=== PATIENT | female | born 1970 | race Caucasian/White ===

== ENCOUNTER 2017-09-20 17:22 | Emergency (ER) | payer SELFPAY ==
[2017-09-20 17:24] VITALS: BP 154/84; PULSE 99; RESP 14; TEMP 98.4; O2SAT 99
[2017-09-20 18:48] LABS: BASOPHIL # 0.1 TH/MM3 (0-0.2); BASOPHIL % 1.1 % (0.0-2.0); EOSINOPHIL # 0.2 TH/MM3 (0-0.4); EOSINOPHIL % 3.9 % (0.0-4.0); HEMATOCRIT 40.4 % (35.0-46.0); HEMO FLAGS DIFF FINAL; LYMPH % 32.3 % (9.0-44.0); LYMPHOCYTE # 1.8 TH/MM3 (1.0-4.8); MEAN CELL VOLUME 96.7 FL (80.0-100.0); MEAN CORPUSCULAR HEMOGLOBIN 32.5 PG (27.0-34.0); MEAN CORPUSCULAR HGB CONC 33.6 % (32.0-36.0); MONO % 8.8 % (0.0-8.0); NEUT % 53.9 % (16.0-70.0); PLATELET COUNT 259 TH/MM3 (150-450); RED BLOOD COUNT 4.18 MIL/MM3 (4.00-5.30); RED CELL DISTRIBUTION WIDTH 14.1 % (11.6-17.2); WHITE BLOOD COUNT 5.6 TH/MM3 (4.0-11.0)
[2017-09-20 19:07] LABS: BICARBONATE 26.2 MEQ/L (21.0-32.0); POTASSIUM 3.7 MEQ/L (3.5-5.1)
--- NOTE | 2017-09-20 19:16 | RADRPT ---
EXAM DATE/TIME: 09/20/2017 18:03 [facility] COMPARISON: No previous studies available for comparison. INDICATIONS : Shortness of breath. MEDICAL HISTORY : None. SURGICAL HISTORY : None. ENCOUNTER: Initial ACUITY: 1 day PAIN SCORE: 0/10 LOCATION: Bilateral chest FINDINGS: PA and lateral views of the chest demonstrate the lungs to be symmetrically aerated without evidence of mass, infiltrate or effusion. The cardiomediastinal contours are unremarkable. Osseous structure s are intact. Surgical clips in the right upper abdominal quadrant are characteristic of prior cholec ystectomy. CONCLUSION: No acute cardiopulmonary process. Sergio Gallegos MD on September 20, 2017 at 19:13 Board Certified Radiologist. This report was verified electronically.
[2017-09-20] MEDS ORDERED: RESP: ALBUTEROL 2.5 MG/IPRATROPIUM 0.5 MG NEB (SCH) INH ONE (20:45)
--- NOTE | 2017-09-20 20:46 | PD ---
HPI Chief Complaint: Respiratory Symptoms Time Seen by Provider: 20:38 Travel History International Travel<30 days: No Contact w/Intl Traveler<30days: No Traveled to known affect area: No History of Present Illness HPI 46-year-old female here for evaluation of shortness of breath and dental pain. She reports that the shortness of breath started today. Shortness of breath is at rest. She is also complaining of left lower dental pain which also started today. No fevers or chills. No history of DVT or PE. No chest pain. No cough. No illicit drug use or IVDU. She moved from [place] to here in December of this year and has no local primary care physician. [facility] Social History Tobacco Use: Yes Allergies-Medications (Allergen,Severity, Reaction): Coded Allergies: Sulfa (Sulfonamide Antibiotics) (Verified Allergy, Unknown, 09/20/17) azithromycin (Verified Allergy, Unknown, 09/20/17) Reported Meds & Prescriptions Reported Meds & Active Scripts Active Penicillin V Potassium 500 Mg Tab 500 Mg PO Q6H 10 Days Tramadol (Tramadol HCl) 50 Mg Tab 50 Mg PO Q6H PRN Review of Systems Except as stated in HPI: all other systems reviewed are Neg Physical Exam Narrative GENERAL: Well-developed, well-nourished, comfortable, no apparent distress. SKIN: Focused skin assessment warm/dry. HEAD: Atraumatic. Normocephalic. EYES: Pupils equal and round. No scleral icterus. No injection or drainage. ENT: No nasal bleeding or discharge. Very poor dentition with caries. No fluctuance or induration. No trismus. Mucous membranes pink and moist. No drooling or stridor. Normal pharynx. NECK: Trachea midline. No JVD. CARDIOVASCULAR: Regular rate and rhythm. RESPIRATORY: No accessory muscle use. Clear to auscultation. Breath sounds equal bilaterally. GASTROINTESTINAL: Abdomen soft, non-tender, nondistended. MUSCULOSKELETAL: No obvious deformities. No clubbing. No cyanosis. No edema. NEUROLOGICAL: Awake and alert. No obvious cranial nerve deficits. Motor grossly within normal limits. Normal speech. PSYCHIATRIC: Appropriate mood and affect; insight and judgment normal. Data Data Last Documented VS Vital Signs Date Time Temp Pulse Resp B/P (MAP) Pulse Ox O2 Delivery O2 Flow Rate FiO2 09/20/17 22:46 18 09/20/17 21:28 98 21 09/20/17 20:52 Room Air 09/20/17 20:49 87 09/20/17 17:24 98.4 Orders Orders Complete Blood Count With Diff (09/20/17 17:46) Basic Metabolic Panel (Bmp) (09/20/17 17:46) Chest, Pa & Lat (09/20/17 ) D-Dimer (09/20/17 20:42) Ckmb (Isoenzyme) Profile (09/20/17 20:42) Troponin I (09/20/17 20:42) Albuterol-Ipratropium Neb (Duoneb Neb) (09/20/17 20:45) Electrocardiogram (09/20/17 20:45) Ketorolac Inj (Toradol Inj) (09/20/17 21:30) Tramadol (Ultram) (09/20/17 22:30) Penicillin V Potassium (Veetids) (09/20/17 22:30) Ed Discharge Order (09/20/17 22:27) Labs Laboratory Tests Test 09/20/17 18:00 09/20/17 21:20 White Blood Count 5.6 TH/MM3 Red Blood Count 4.18 MIL/MM3 Hemoglobin 13.6 GM/DL Hematocrit 40.4 % Mean Corpuscular Volume 96.7 FL Mean Corpuscular Hemoglobin 32.5 PG Mean Corpuscular Hemoglobin Concent 33.6 % Red Cell Distribution Width 14.1 % Platelet Count 259 TH/MM3 Mean Platelet Volume 8.9 FL Neutrophils (%) (Auto) 53.9 % Lymphocytes (%) (Auto) 32.3 % Monocytes (%) (Auto) 8.8 % Eosinophils (%) (Auto) 3.9 % Basophils (%) (Auto) 1.1 % Neutrophils # (Auto) 3.0 TH/MM3 Lymphocytes # (Auto) 1.8 TH/MM3 Monocytes # (Auto) 0.5 TH/MM3 Eosinophils # (Auto) 0.2 TH/MM3 Basophils # (Auto) 0.1 TH/MM3 CBC Comment DIFF FINAL Differential Comment Blood Urea Nitrogen 15 MG/DL Creatinine 0.66 MG/DL Random Glucose 58 MG/DL Calcium Level 8.0 MG/DL Sodium Level 140 MEQ/L Potassium Level 3.7 MEQ/L Chloride Level 109 MEQ/L Carbon Dioxide Level 26.2 MEQ/L Anion Gap 5 MEQ/L Estimat Glomerular Filtration Rate 96 ML/MIN Total Creatine Kinase 34 U/L Troponin I LESS THAN 0.02 NG/ML D-Dimer Quantitative (PE/DVT) 0.39 MG/L FEU [facility] Medical Decision Making Medical Screen Exam Complete: Yes Emergency Medical Condition: Yes Interpretation(s) EKG: Sinus, rate 88, normal axis, normal intervals, no acute ischemic abnormality. Differential Diagnosis Reactive airway disease, COPD, pneumonia, PE, ACS, pneumothorax Narrative Course Vital signs show heart rate 87, blood pressure 147/81, pulse ox 100% on room air , oral temp of 98.4F. CBC is unremarkable. BMP is essentially unremarkable. Cardiac enzymes are negative. D-dimer is negative at 0.39. Chest x-ray: No acute cardiopulmonary process. The patient was made aware of all findings. She is resting comfortably. Her O2 saturation is 99% on room air and she is not in any respiratory distress. I do not have a specific etiology for her dyspnea, however I do not believe she has a PE. She has no chest pain. I do not believe this is ACS. Chest x-ray shows no acute cardiopulmonary process. There is no pneumothorax or pulmonary edema. She is requesting something for her dental pain. She has obvious dental decay with tenderness to the left lower molars with several missing teeth. There are no obvious signs of infection. Plan is to discharge her home with a prescription for Pen-Vee K and pain medication. She is advised follow- up with a primary care physician as well as a dentist this week. She was informed on when to return to the emergency department. She verbalizes understanding and agreement with plan. Diagnosis Primary Impression: Pain, dental Additional Impression: Dyspnea Qualified Codes: R06.00 - Dyspnea, unspecified Referrals: [facility] 3 days Dentist 3 days Primary Care Physician 3 days Additional Instructions: Follow-up with a primary care physician this week. Follow-up with a dentist this week. Return to the emergency department for worsening symptoms or any other concerns. Scripts Penicillin V Potassium (Penicillin V Potassium) 500 Mg Tab 500 MG PO Q6H for Infection for 10 Days, #40 TAB 0 Refills Prov: Roly Branch MD 09/20/17 Tramadol (Tramadol) 50 Mg Tab 50 MG PO Q6H Y for PAIN, #12 TAB 0 Refills Prov: Roly Branch MD 09/20/17 Disposition: 01 DISCHARGE HOME Condition: Stable Roly Branch MD Sep 20, 2017 20:46
[2017-09-20 20:49] VITALS: BP 147/81; PULSE 87; RESP 20; O2SAT 100
[2017-09-20 21:26] LABS: CREATINE KINASE 34 U/L (26-192)
[2017-09-20 21:28] VITALS: O2SAT 98
[2017-09-20] MEDS ORDERED: KETOROLAC TROMETHAMINE 30 MG/ML (IVP) VIAL IV PUSH ONE (21:30)
[2017-09-20] MEDS ORDERED: TRAM50TA PO (22:26)
[2017-09-20] MEDS ORDERED: PENI500T PO (22:26)
[2017-09-20] MEDS ORDERED: traMADol HCL 50 MG TAB PO ONE (22:30)
[2017-09-20] MEDS ORDERED: PENICILLIN V POTASSIUM 500 MG TAB PO ONE (22:30)
--- NOTE | 2017-09-21 15:19 | EKG ---
Date Performed: 09/20/2017 Time Performed: 20:45:33 PTAGE: 46 years EKG: Sinus rhythm NORMAL ECG NO PREVIOUS TRACING DOCTOR: Saige Johansen Interpretating Date/Time 09/21/2017 15:18:21
== END 2017-09-20 22:48 | disposition home or self-care (01) ==
LOC: NEPD 17:22
DX: K08.89 Other specified disorders of teeth and supporting structures (principal); R06.00 Dyspnea, unspecified; R06.02 Shortness of breath; Z72.0 Tobacco use
CPT/HCPCS: 71020; 80048; 82550; 84484; 85025; 85379; 93005; 94664; 96374; 99284; J1885

== ENCOUNTER 2018-01-16 21:54 | Observation (INO) | payer SELFPAY ==
[~2018-01-16 21:54] MED LIST: PENI500T PO; TRAM50TA PO
[2018-01-16 21:58] VITALS: BP 155/88; PULSE 116; RESP 16; TEMP 97.8; O2SAT 100
--- NOTE | 2018-01-16 22:21 | PD ---
HPI Chief Complaint: Chest Pain Time Seen by Provider: 22:20 Travel History International Travel<30 days: No Contact w/Intl Traveler<30days: No Traveled to known affect area: No History of Present Illness HPI The patient is a 47 year old female who presents to the [facility] emergency department with a history of chest pain that began at approximately 3 PM. She reports that she had more fatigue than usual today and took a nap. When she woke up from the nap she noticed the chest pain. She reports that the pain is in the left side of her chest. She reports that it radiates straight through to her back and her left shoulder. She denies ever having a pain like this previously. She reports that it is sharp in character. She reports that it is been constant since the onset. She did take one low-dose aspirin prior to arrival. She denies having any prior history of cardiac disease. She reports having associated shortness of breath. She denies having any nausea or vomiting. She denies having any diaphoresis. She denies having any lower extremity edema, calf pain, or erythema. She denies any prior history of DVT or PE. On review of systems otherwise, she denies having any recent fevers, cough or congestion, neck pain, abdominal pain, diarrhea, urinary symptoms, or neurologic symptoms. The patient reports that her primary care physician is Dr. Ulloa. She reports that she does have a history of hyperlipidemia, however this resolved after a gastric bypass 12 years ago. [facility] Past Medical History Narrative Medical The patient's past medical history is significant for low iron, low potassium as complications from her gastric bypass. The patient has a history of bowel obstruction related to adhesions. Depression: Yes Diminished Hearing: No Immunizations Current: Yes ?: Not LMP: 01/11/18 Past Surgical History Narrative Surgical The patient's past surgical history is significant for gastric bypass, cholecystectomy, abdominal surgery related to bowel obstruction and lysis of adhesions. Abdominal Surgery: Yes ("BOWEL OBSTRUCTIONS", GASTRIC BYPASS) Cholecystectomy: Yes Social History Alcohol Use: No (DENIES) Tobacco Use: Yes (10/26 PPD) Substance Use: No Allergies-Medications (Allergen,Severity, Reaction): Coded Allergies: Sulfa (Sulfonamide Antibiotics) (Verified Allergy, Unknown, 01/16/18) azithromycin (Verified Allergy, Unknown, 01/16/18) Reported Meds & Prescriptions Reported Meds & Active Scripts Active No Active Prescriptions or Reported Medications Review of Systems Except as stated in HPI: all other systems reviewed are Neg General / Constitutional: No: Fever Eyes: No: Visual changes HENT: No: Headaches Cardiovascular: Positive: Chest Pain or Discomfort, Dyspnea on exertion, No: Diaphoresis Respiratory: No: Cough, Shortness of Breath Gastrointestinal: No: Nausea, Vomiting, Diarrhea, Abdominal Pain Genitourinary: No: Dysuria Musculoskeletal: No: Pain Skin: No Rash Neurologic: No: Weakness Psychiatric: No: Depression Endocrine: No: Polydipsia Hematologic/Lymphatic: No: Easy Bruising Physical Exam Narrative General: The patient is a well-developed well-nourished female, uncomfortable appearing on my arrival to the room, however in no other acute distress. Head and Neck exam: Head is normocephalic atraumatic. Eyes: EOMI, pupils are equal round and reactive to light. Nose: Midline septum with pink mucous membranes Mouth: Dentition unremarkable. Moist mucus membranes. Posterior oropharynx is not erythematous. No tonsillar hypertrophy. Uvula midline. Airway patent. Neck: No palpable lymphadenopathy. No nuchal rigidity. No thyromegaly. Cardiovascular: Sinus tachycardia in the low 100 without murmurs, gallops, or rubs. No pulse deficit to the extremities on simultaneous auscultation and palpation of her radial artery. Lungs: Clear to auscultation bilaterally. No wheezes, rhonchi, or rales. Abdomen: Soft, without tenderness to palpation in all 4 quadrants of the abdomen. No guarding, rebound, or rigidity. Normal bowel sounds are audible. No tenderness on palpation of McBurney's point. Extremities: No clubbing, cyanosis, or edema. 2+ pulses in all 4 extremities. No calf tenderness on palpation. Back: No spinous process tenderness to palpation. No costovertebral angle tenderness to palpation. Neurologic Exam: Grossly nonfocal. Skin Exam: No rash noted. Intact skin that is warm and dry. Data Data Last Documented VS Vital Signs Date Time Temp Pulse Resp B/P (MAP) Pulse Ox O2 Delivery O2 Flow Rate FiO2 01/16/18 21:58 97.8 116 16 155/88 (110) 100 Room Air Orders Orders B-Type Natriuretic Peptide (01/16/18 22:20) Ckmb (Isoenzyme) Profile (01/16/18 22:20) Complete Blood Count With Diff (01/16/18 22:20) Comprehensive Metabolic Panel (01/16/18 22:20) D-Dimer (01/16/18 22:20) Magnesium (Mg) (01/16/18 22:20) Prothrombin Time / Inr (Pt) (01/16/18 22:20) Act Partial Throm Time (Ptt) (01/16/18 22:20) Troponin I (01/16/18 22:20) Lipase (01/16/18 22:20) Ecg Monitoring (01/16/18 22:20) Bilateral Bp Monitoring (01/16/18 22:20) Iv Access Insert/Monitor (01/16/18 22:20) Oximetry (01/16/18 22:20) Oxygen Administration (01/16/18 22:20) Aspirin Chew (Aspirin Chew) (01/16/18 22:30) Sodium Chloride 0.9% Flush (Ns Flush) (01/16/18 22:30) Nitroglycerin Sl (Nitrostat Sl) (01/16/18 22:30) Chest, Pa & Lat (01/16/18 22:20) Ed Urine Pregnancytest Poc (01/16/18 22:20) Aspirin Chew (Aspirin Chew) (01/16/18 23:15) Nitroglycerin 2% Oint (Nitroglycerin 2% (01/16/18 23:15) Blood Glucose (01/17/18 00:29) Morphine Inj (Morphine Inj) (01/17/18 00:30) Ondansetron Inj (Zofran Inj) (01/17/18 00:30) Admit Order (Ed Use Only) (01/17/18 01:00) Labs Laboratory Tests Test 01/16/18 22:50 White Blood Count 8.1 TH/MM3 Red Blood Count 4.49 MIL/MM3 Hemoglobin 14.0 GM/DL Hematocrit 42.1 % Mean Corpuscular Volume 93.7 FL Mean Corpuscular Hemoglobin 31.3 PG Mean Corpuscular Hemoglobin Concent 33.4 % Red Cell Distribution Width 13.2 % Platelet Count 249 TH/MM3 Mean Platelet Volume 9.0 FL Neutrophils (%) (Auto) 57.5 % Lymphocytes (%) (Auto) 25.8 % Monocytes (%) (Auto) 11.5 % Eosinophils (%) (Auto) 4.3 % Basophils (%) (Auto) 0.9 % Neutrophils # (Auto) 4.7 TH/MM3 Lymphocytes # (Auto) 2.1 TH/MM3 Monocytes # (Auto) 0.9 TH/MM3 Eosinophils # (Auto) 0.3 TH/MM3 Basophils # (Auto) 0.1 TH/MM3 CBC Comment DIFF FINAL Differential Comment Prothrombin Time 9.5 SEC Prothromb Time International Ratio 0.9 RATIO Activated Partial Thromboplast Time 24.1 SEC D-Dimer Quantitative (PE/DVT) 0.45 MG/L FEU Blood Urea Nitrogen 17 MG/DL Creatinine 0.74 MG/DL Random Glucose 65 MG/DL Total Protein 6.9 GM/DL Albumin 3.1 GM/DL Calcium Level 7.8 MG/DL Magnesium Level 2.0 MG/DL Alkaline Phosphatase 140 U/L Aspartate Amino Transf (AST/SGOT) 20 U/L Alanine Aminotransferase (ALT/SGPT) 34 U/L Total Bilirubin 0.3 MG/DL Sodium Level 140 MEQ/L Potassium Level 3.6 MEQ/L Chloride Level 105 MEQ/L Carbon Dioxide Level 28.0 MEQ/L Anion Gap 7 MEQ/L Estimat Glomerular Filtration Rate 84 ML/MIN Total Creatine Kinase 55 U/L Troponin I LESS THAN 0.02 NG/ML B-Type Natriuretic Peptide 52 PG/ML Lipase 171 U/L MDM Medical Decision Making Medical Screen Exam Complete: Yes Emergency Medical Condition: Yes Medical Record Reviewed: Yes Interpretation(s) Last Impressions CT Angiography 01/17/18 0000 Signed Impressions: Service Date/Time: Wednesday, January 17, 2018 09:39 - CONCLUSION: Unremarkable exam with no evidence of pulmonary emboli. Geovanny Gonzalez MD Chest X-Ray 01/16/18 2220 Signed Impressions: Service Date/Time: Tuesday, January 16, 2018 22:30 - CONCLUSION: No acute disease. Raphael Betancourt MD FACR Differential Diagnosis Acute coronary syndrome, versus pulmonary embolism, versus congestive heart failure, versus C, versus costochondritis, versus pneumothorax Narrative Course During the course of the patient's emergency department visit, the patient's history, examination, and differential diagnosis were reviewed with the patient. The patient was placed on a gate clerk with oximetry and frequent blood pressure monitoring. The patient had IV access obtained and blood work sent for analysis. The patient had an EKG done on arrival that shows a sinus tachycardia with a short NM interval, QRS duration is 89 ms, QTC is [address] segment elevation. T waves are inverted in V1. The patient was initially provided aspirin 243 mg p.o. 1 as she reports taking one low-dose aspirin prior to arrival. Sublingual nitroglycerin 3 as needed chest pain every 5 minutes, nitroglycerin 1 inch the chest wall. The patient's laboratory studies were reviewed and remarkable for a CBC that is unremarkable, CMP is remarkable for a glucose of 65 on chemistry, however on repeat examination of the bedside it was found to be normal. Alk phos 140, CPK 55, troponin I less than 0.02, BNP is 52, albumin 3.1, lipase 171. PT 9.5, PTT 24.1, d-dimer 0.45 decreasing the likelihood of pulmonary embolism in this patient with no other significant risk factors. Radiology studies were reviewed and remarkable for a chest x-ray that showed no acute cardiopulmonary disease The patient's results were discussed with the patient, including the plan of care. I explained that further testing and/ or monitoring is indicated based on the patient's history, examination, and/ or laboratory findings. Therefore, I recommended admission for additional evaluation. The patient expressed understanding and was agreeable with this plan. The patient was admitted to the hospital in stable condition and sent to a bed under the care of the chest pain center Diagnosis Primary Impression: Chest pain, rule out acute myocardial infarction Admitting Information Admitting Physician Requests: Observation Scripts No Active Prescriptions or Reported Meds Sunni Hernandez MD Jan 16, 2018 22:21
[2018-01-16] MEDS ORDERED: SODIUM CHLORIDE 0.9% FLUSH 10 ML FLUSH IVF PRN (22:30)
[2018-01-16] MEDS ORDERED: ASPIRIN 81 MG CHEW TAB PO ONE (22:30)
[2018-01-16] MEDS ORDERED: NITROGLYCERIN 0.4 MG SL 25 TABS/BTL SL ONE (22:30)
--- NOTE | 2018-01-16 22:37 | RADRPT ---
EXAM DATE/TIME: 01/16/2018 22:30 [facility] COMPARISON: CHEST PA & LAT, September 20, 2017, 18:03. INDICATIONS : Chest pain MEDICAL HISTORY : None. SURGICAL HISTORY : None. ENCOUNTER: Initial ACUITY: 1 day PAIN SCORE: 8/10 LOCATION: chest FINDINGS: PA and lateral views of the chest demonstrate the lungs to be symmetrically aerated without evidence of mass, infiltrate or effusion. The cardiomediastinal contours are unremarkable. Osseous structure s are intact. CONCLUSION: No acute disease. Raphael Betancourt MD FACR on January 16, 2018 at 22:34 Board Certified Radiologist. This report was verified electronically.
[2018-01-16] MEDS ORDERED: ASPIRIN 81 MG CHEW TAB CHEW ONE (23:15)
[2018-01-16] MEDS ORDERED: NITROGLYCERIN 2% OINT 1 GM PACKET TOPICAL ONE (23:15)
[2018-01-16 23:19] LABS: ALBUMIN 3.1 GM/DL (3.4-5.0); AST (GOT) 20 U/L (15-37); BLOOD UREA NITROGEN 17 MG/DL (7-18); CALCIUM 7.8 MG/DL (8.5-10.1); CHLORIDE 105 MEQ/L (98-107); CREATININE 0.74 MG/DL (0.50-1.00); GLOMERULAR FILTRATION RATE 84 ML/MIN (>89); GLUCOSE,RANDOM 65 MG/DL (74-106); SODIUM (NA) 140 MEQ/L (136-145)
[2018-01-16 23:23] LABS: ALKALINE PHOSPHATASE 140 U/L (45-117); ALT (GPT) 34 U/L (10-53); TOTAL BILIRUBIN ADULT 0.3 MG/DL (0.2-1.0); TOTAL PROTEIN 6.9 GM/DL (6.4-8.2); TROPONIN I LESS THAN 0.02 NG/ML (0.02-0.05)
[2018-01-16 23:29] LABS: INTERNATIONAL NORMALIZED RATIO 0.9 RATIO; PROTHROMBIN TIME - PATIENT 9.5 SEC (9.8-11.6)
[2018-01-16 23:42] LABS: D-DIMER 0.45 MG/L FEU (0.00-0.50)
[2018-01-17] LABS: AUTOMATED NEUTROPHIL # 4.7 TH/MM3 (1.8-7.7); BASOPHIL # 0.1 TH/MM3 (0-0.2); BASOPHIL % 0.9 % (0.0-2.0); EOSINOPHIL # 0.3 TH/MM3 (0-0.4); EOSINOPHIL % 4.3 % (0.0-4.0); HEMATOCRIT 42.1 % (35.0-46.0); LYMPH % 25.8 % (9.0-44.0); LYMPHOCYTE # 2.1 TH/MM3 (1.0-4.8); MEAN CELL VOLUME 93.7 FL (80.0-100.0); MEAN CORPUSCULAR HEMOGLOBIN 31.3 PG (27.0-34.0); MEAN CORPUSCULAR HGB CONC 33.4 % (32.0-36.0); MONO % 11.5 % (0.0-8.0); MONOCYTE # 0.9 TH/MM3 (0-0.9); NEUT % 57.5 % (16.0-70.0); PLATELET COUNT 249 TH/MM3 (150-450); RED BLOOD COUNT 4.49 MIL/MM3 (4.00-5.30); RED CELL DISTRIBUTION WIDTH 13.2 % (11.6-17.2); WHITE BLOOD COUNT 8.1 TH/MM3 (4.0-11.0)
[2018-01-17] MEDS ORDERED: ONDANSETRON HCL 4 MG/2 ML VIAL IV PUSH ONE (00:30)
[2018-01-17] MEDS ORDERED: MORPHINE SULFATE 4 MG/ML INJ IV PUSH ONE (00:30)
[2018-01-17] MEDS ORDERED: REGADENOSON INJ 0.4 MG/5 ML SYR IV ONE (01:03)
[2018-01-17] MEDS ORDERED: IOHEXOL 350 MG/ML 10 ML VIAL (for RAD DIAG) IVCONTRAST ONE (01:03)
[2018-01-17] MEDS ORDERED: SODIUM CHLORIDE 0.9% FLUSH 10 ML FLUSH IV FLUSH PRN (02:15)
[2018-01-17] MEDS: ACETAMINOPHEN/HYDROcodone 325 MG/7.5 MG TAB PO PRN ×2 (02:33→07:57)
[2018-01-17 02:36] VITALS: BP 126/73; PULSE 93; RESP 16; O2SAT 99
[2018-01-17 02:50] LABS: TROPONIN I LESS THAN 0.02 NG/ML (0.02-0.05)
[2018-01-17 05:39] LABS: TROPONIN I LESS THAN 0.02 NG/ML (0.02-0.05)
[2018-01-17 07:31] VITALS: O2SAT 95
[2018-01-17 08:37] VITALS: BP 139/90; PULSE 110; RESP 18; TEMP 99.2; O2SAT 96
[2018-01-17] MEDS ORDERED: LORazepam 2 MG/ML VIAL IV PUSH ONE (09:00)
[2018-01-17] MEDS ORDERED: SODIUM CHLORIDE 0.9% FLUSH 10 ML FLUSH IV FLUSH SCH (09:00)
[2018-01-17 09:26] VITALS: RESP 18
--- NOTE | 2018-01-17 09:46 | HHI.HP ---
HPI Primary Care Physician Unknown Chief Complaint Chest pain History of Present Illness This is a 47-year-old female history of anxiety, back pain, neuropathy that presents to ED with complaint of a left-sided sharp chest discomfort that has been intermittent for couple days. Worse when she lies flat. Symptoms were worse yesterday afternoon prompting her to come to the ED. She has not had symptoms like this before. She is felt as if her heart rate was elevated. She has been short of breath. No inspirational chest discomfort. Denies diaphoresis or nausea. Denies . Her urine test was negative in the ED. Denies recent illnesses. Denies fevers or chills. Voices compliance with medications. Denies hypertension, hyperlipidemia, diabetes, or known CAD. Review of Systems General: Patient denies fevers, chills recent, and recent travel HEENT: Patient denies headache, sore throat, difficulty swallowing. Cardiovascular: Has the chest discomfort as mentioned above. Denies sensation of heart beating rapidly or irregularly. No syncope. Denies diaphoresis. Respiratory: Had shortness of breath. Discomfort was worsened when taking a deep breath as well as when lying flat. Denies coughing wheezing or hemoptysis. GI: Patient denies nausea, vomiting, diarrhea, abdominal pain, bloody stools. Musculoskeletal: Chronic back pain. Patient denies joint pain or edema. Denies calf pain or edema. Neurovascular: Patient denies numbness, tingling, weakness in extremities. Denies headache. Endocrine: Denies polyuria and polydipsia. Hematologic: Denies easy bruising. Skin: Denies rash or itching. Past Family Social History Allergies: Coded Allergies: Sulfa (Sulfonamide Antibiotics) (Verified Allergy, Unknown, 01/16/18) azithromycin (Verified Allergy, Unknown, 01/16/18) Past Medical History Tobacco abuse, anxiety, chronic back pain. Denies hypertension, hyperlipidemia , diabetes, and known CAD. Past Surgical History Gastric bypass about 12 years ago. Reported Medications Reported Meds & Active Scripts Active Active Ordered Medications Current Medications Medications (Trade) Dose Ordered Sig/Corey Route Start Time Stop Time Status Last Admin (NS Flush) 2 ml UNSCH PRN IVF 01/16/18 22:30 01/16/18 22:55 (NS Flush) 2 ml UNSCH PRN IV FLUSH 01/17/18 02:15 (NS Flush) 2 ml BID IV FLUSH 01/17/18 09:00 01/17/18 07:57 ([place] 7.5-325 Mg) 1 tab Q4H PRN PO 01/17/18 02:15 01/17/18 07:57 Family History Patient states she is adopted and does not know her family medical history. Social History Has been smoking one half pack of cigarettes daily for approximately 30 years. Denies alcohol or illicit drug use. Physical Exam Vital Signs Vital Signs Date Time Temp Pulse Resp B/P (MAP) Pulse Ox O2 Delivery O2 Flow Rate FiO2 01/17/18 09:26 18 01/17/18 08:37 99.2 110 18 139/90 (106) 96 01/17/18 07:31 95 21 01/17/18 02:36 93 16 126/73 (90) 99 Room Air 01/16/18 21:58 97.8 116 16 155/88 (110) 100 Room Air Physical Exam GENERAL: This is a well-nourished, well-developed patient, in no apparent distress. Patient speaks in clear complete sentences. Patient is pleasant. HEENT: Head is atraumatic and normocephalic. Neck is supple without lymphadenopathy and trachea is midline. No JVD or carotid bruits. CARDIOVASCULAR: Regular rate and rhythm without murmurs, gallops, or rubs. RESPIRATORY: Clear to auscultation. Breath sounds equal bilaterally. No wheezes , rales, or rhonchi. Chest wall is nontender. No use of accessory muscles. GASTROINTESTINAL: Abdomen is nontender, nondistended. Abdomen soft. No obvious pulsatile mass or bruit. No CVA tenderness. Strong femoral pulses bilaterally. Normal bowel sounds in all quadrants. MUSCULOSKELETAL: Patient is moving upper and lower extremities freely. No calf tenderness or edema, no Homans sign. Strong pulses in upper and lower extremities. NEUROLOGICAL: Patient is alert and oriented. Cranial nerves 2-12 are grossly intact. No focal deficits and speech is clear. SKIN: No rash and turgor is normal. Laboratory Laboratory Tests Test 01/16/18 22:50 01/17/18 02:15 01/17/18 05:00 01/17/18 08:50 White Blood Count 8.1 Red Blood Count 4.49 Hemoglobin 14.0 Hematocrit 42.1 Mean Corpuscular Volume 93.7 Mean Corpuscular Hemoglobin 31.3 Mean Corpuscular Hemoglobin Concent 33.4 Red Cell Distribution Width 13.2 Platelet Count 249 Mean Platelet Volume 9.0 Neutrophils (%) (Auto) 57.5 Lymphocytes (%) (Auto) 25.8 Monocytes (%) (Auto) 11.5 Eosinophils (%) (Auto) 4.3 Basophils (%) (Auto) 0.9 Neutrophils # (Auto) 4.7 Lymphocytes # (Auto) 2.1 Monocytes # (Auto) 0.9 Eosinophils # (Auto) 0.3 Basophils # (Auto) 0.1 CBC Comment DIFF FINAL Differential Comment Prothrombin Time 9.5 Prothromb Time International Ratio 0.9 Activated Partial Thromboplast Time 24.1 D-Dimer Quantitative (PE/DVT) 0.45 Blood Urea Nitrogen 17 Creatinine 0.74 Random Glucose 65 Total Protein 6.9 Albumin 3.1 Calcium Level 7.8 Magnesium Level 2.0 Alkaline Phosphatase 140 Aspartate Amino Transf (AST/SGOT) 20 Alanine Aminotransferase (ALT/SGPT) 34 Total Bilirubin 0.3 Sodium Level 140 Potassium Level 3.6 Chloride Level 105 Carbon Dioxide Level 28.0 Anion Gap 7 Estimat Glomerular Filtration Rate 84 Total Creatine Kinase 55 55 44 Troponin I LESS THAN 0.02 LESS THAN 0.02 LESS THAN 0.02 B-Type Natriuretic Peptide 52 Lipase 171 Thyroid Stimulating Hormone 3rd Gen 2.600 Result Diagram: 01/16/18224901/16/182249 Imaging Chest x-ray reveals nothing acute. Course EKGs are sinus tachycardia without significant ST segment depressions or elevations. Caprini VTE Risk Assessment Caprini VTE Risk Assessment: No/Low Risk (score <= 1) Caprini Risk Assessment Model Point Value = 1 Point Value = 2 Point Value = 3 Point Value = 5 Age 41-60 Minor surgery BMI > 25 kg/m2 Swollen legs Varicose veins or History of unexplained or recurrent spontaneous Oral contraceptives or hormone replacement Sepsis (< 1 month) Serious lung disease, including pneumonia (< 1 month) Abnormal pulmonary function Acute myocardial infarction Congestive heart failure (< 1 month) History of inflammatory bowel disease Medical patient at bed rest Age 61-74 Arthroscopic surgery Major open surgery (> 45 min) Laparoscopic surgery (> 45 min) Malignancy Confined to bed (> 72 hours) Immobilizing plaster cast Central venous access Age >= 75 History of VTE Family history of VTE Factor V Leiden Prothrombin [id number] Lupus anticoagulant Anticardiolipin antibodies Elevated serum homocysteine Heparin-induced thrombocytopenia Other congenital or acquired thrombophilia Stroke (< 1 month) Elective arthroplasty Hip, pelvis, or leg fracture Acute spinal cord injury (< 1 month) Prophylaxis Regimen Total Risk Factor Score Risk Level Prophylaxis Regimen 0-1 Low Early ambulation 2 Moderate Order ONE of the following: *Sequential Compression Device (SCD) *Heparin 5000 units SQ BID 3-4 Higher Order ONE of the following medications: *Heparin 5000 units SQ TID *Enoxaparin/Lovenox 40 mg SQ daily (WT < 150 kg, CrCl > 30 mL/min) *Enoxaparin/Lovenox 30 mg SQ daily (WT < 150 kg, CrCl > 10-29 mL/min) *Enoxaparin/Lovenox 30 mg SQ BID (WT < 150 kg, CrCl > 30 mL/min) AND/OR *Sequential Compression Device (SCD) 5 or more Highest Order ONE of the following medications: *Heparin 5000 units SQ TID (Preferred with Epidurals) *Enoxaparin/Lovenox 40 mg SQ daily (WT < 150 kg, CrCl > 30 mL/min) *Enoxaparin/Lovenox 30 mg SQ daily (WT < 150 kg, CrCl > 10-29 mL/min) *Enoxaparin/Lovenox 30 mg SQ BID (WT < 150 kg, CrCl > 30 mL/min) AND *Sequential Compression Device (SCD) Assessment and Plan Assessment and Plan * Chest pain: Patient has had serial cardiac enzymes and EKGs for ruling out purposes. She is also complaining of worsening symptoms with deep inspiration lying flat. We will get a CT pulmonary angiogram. Patient was seen by Dr. Brett Lin of cardiology in the [facility] pain center. If her CTA does not reveal PE that she would likely proceed with a Lexiscan. Patient will be then be discharged home if her stress test is nonischemic with instructions to follow -up with PCP. Return to ED for interval issues. * Anxiety: Resume medications. * Tobacco abuse: Patient has been counseled on the importance of smoking cessation. Alejo Vargas Jan 17, 2018 09:46
--- NOTE | 2018-01-17 10:02 | RADRPT ---
EXAM DATE/TIME: 01/17/2018 09:39 [facility] COMPARISON: CHEST PA & LAT, January 16, 2018, 22:30. INDICATIONS : Chest pain IV CONTRAST: 74 cc Omnipaque 350 (iohexol) IV RADIATION DOSE: 5.21 CTDIvol (mGy) MEDICAL HISTORY : None SURGICAL HISTORY : Gastric bypass. Cholecystectomy. ENCOUNTER: Initial ACUITY: 1 day PAIN SCALE: 7/10 LOCATION: chest TECHNIQUE: Volumetric scanning of the chest was performed using a pulmonary embolism protocol MIP images were re constructed. Using automated exposure control and adjustment of the mA and/or kV according to patien t size, radiation dose was kept as low as reasonably achievable to obtain optimal diagnostic quality images. DICOM format image data is available electronically for review and comparison. Follow-up recommendations for detected pulmonary nodules are based at a minimum on nodule size and pa tient risk factors according to Fleischner Society Guidelines. FINDINGS: PULMONARY ARTERIES: No filling defects are seen in the pulmonary arteries through the segmental level. LUNGS: There is no consolidation or pneumothorax . No concerning pulmonary nodule is visualized. PLEURAE: There is no pleural thickening or pleural effusion. MEDIASTINUM: There is good visualization of the great vessels of the middle mediastinum. No evidence of mediastin al or hilar adenopathy/mass. MUSCULOSKELETAL: Within normal limits for patient age. MISCELLANEOUS: The visualized upper abdominal organs demonstrate no acute abnormality. The patient is status post ch olecystectomy. CONCLUSION: Unremarkable exam with no evidence of pulmonary emboli. Geovanny Gonzalez MD on January 17, 2018 at 9:57 Board Certified Radiologist. This report was verified electronically.
--- NOTE | 2018-01-17 14:01 | RADRPT ---
EXAM DATE/TIME: 01/17/2018 12:23 [facility] COMPARISON: CHEST PA & LAT, January 16, 2018, 22:30. INDICATIONS : Chest pain with dyspnea and polysubstance abuse. Angina. DOSE: 27.2 mCi Tc99m Myoview at stress. 8.5 mCi Tc99m Myoview at rest. 0.4 mg Lexiscan STRESS SYMPTOMS: Weird feeling. EJECTION FRACTION: 43% MEDICAL HISTORY : Hypercholesterolemia. Beta - SURGICAL HISTORY : Gastric bypass. Cholecystectomy. ENCOUNTER: Initial ACUITY: 1 day PAIN SCALE: 0/10 LOCATION: Bilateral chest TECHNIQUE: The patient underwent pharmacologic stress with infusion of prescribed dose. Continuous ECG tracing was monitored during stress. Gated SPECT imaging was performed after stress and conventional SPECT i maging was performed at rest. The examination was performed on a SPECT/CT scanner, both attenuation and non-corrected datasets were reviewed. FINDINGS: DISTRIBUTION: The maximum perfused segment at stress is in the anterior lateral wall. PERFUSION STUDY: The pattern of perfusion at stress is within normal limits. There is a some stress score of 4. GATED STUDY: There is fairly symmetric wall motion with questionable mild hypokinesis without a distinct focal hyp okinetic or dyskinetic segments. CONCLUSION: 1. No fixed or reversible wall defects to suggest ischemia or infarction. 2. Mildly decreased activity ejection fraction of 43% with questionable mild global hypokinesis. RISK CATEGORY: Low (<1% Annual Mortality Rate) Geovanny Gonzalez MD on January 17, 2018 at 13:55 Board Certified Radiologist. This report was verified electronically.
--- NOTE | 2018-01-17 14:28 | HHI.DCPOC ---
Discharge Care Plan Diagnosis: (1) Chest pain (2) Tobacco abuse (3) Polysubstance abuse Goals to Promote Your Health * To prevent worsening of your condition and complications * To maintain your health at the optimal level Directions to Meet Your Goals Take your medications as prescribed Follow your dietary instruction Follow activity as directed Keep your appointments as scheduled Take your immunizations and boosters as scheduled If your symptoms worsen call your PCP, if no PCP go to Urgent Care Center or Emergency Room Smoking is Dangerous to Your Health. Avoid second hand smoke Call the 24-hour hour crisis hotline for domestic abuse at Alejo Vargas Jan 17, 2018 14:28
--- NOTE | 2018-01-17 16:01 | EKG ---
Date Performed: 01/17/2018 Time Performed: 08:44:24 PTAGE: 47 years EKG: SINUS TACHYCARDIA WITH SHORT HI INTERVAL MODERATE VOLTAGE CRITERIA FOR LVH, CONSIDER NORMAL VARIANT ABNORMAL RHYTHM ECG PREVIOUS TRACING : 01/17/2018 05.58 Since previous tracing, no significant change noted DOCTOR: Brett Lin Interpretating Date/Time 01/17/2018 15:59:59
--- NOTE | 2018-01-17 16:02 | EKG ---
Date Performed: 01/17/2018 Time Performed: 05:58:37 PTAGE: 47 years EKG: SINUS TACHYCARDIA WITH SHORT MA INTERVAL POSSIBLE LEFT ATRIAL ENLARGEMENT POSSIBLE LEFT MARIBELL TRICULAR HYPERTROPHY ABNORMAL ECG PREVIOUS TRACING : 01/16/2018 22.45 Since previous tracing, no significant change noted DOCTOR: Brett Lin Interpretating Date/Time 01/17/2018 16:00:29
--- NOTE | 2018-01-17 16:04 | EKG ---
Date Performed: 01/16/2018 Time Performed: 22:45:37 PTAGE: 47 years EKG: SINUS TACHYCARDIA WITH SHORT OH INTERVAL POSSIBLE LEFT ATRIAL ENLARGEMENT POSSIBLE LEFT MARIBELL TRICULAR HYPERTROPHY ABNORMAL ECG PREVIOUS TRACING : 09/20/2017 20.45 Since previous tracing, no significant change noted DOCTOR: Brett Lin Interpretating Date/Time 01/17/2018 16:02:46
--- NOTE | 2018-01-17 16:08 | TR ---
Date Performed: 01/17/2018 Time Performed: 12:49:56 DOCTOR: Brett Lin DRUG LIST: CLINICAL HISTORY: REASON FOR TEST: REASON FOR ENDING: OBSERVATION: CONCLUSION: Lexiscan stress test was performed under standard four minute protocol. Radionuclid e was injected one minute prior to ending the test. No electrocardiographic abormalities were present to suggest ischemia. Nuclear imaging and interpretation are pending. COMMENTS:
== END 2018-01-17 16:23 | disposition home or self-care (01) ==
LOC: NEPC 21:54 → NEDA 01-17 01:02 → NEPFCDU 01-17 03:29
PROVIDERS: ADMIT Internal Medicine Interventional Cardiology; ATTEND Internal Medicine Interventional Cardiology
DX: R07.89 Other chest pain (principal); F41.9 Anxiety disorder, unspecified; R00.0 Tachycardia, unspecified; R94.31 Abnormal electrocardiogram [ECG] [EKG]; R53.83 Other fatigue; R06.02 Shortness of breath; M54.9 Dorsalgia, unspecified; G89.29 Other chronic pain; E78.5 Hyperlipidemia, unspecified; F32.9 Major depressive disorder, single episode, unspecified; F17.210 Nicotine dependence, cigarettes, uncomplicated; Z98.84 Bariatric surgery status
CPT/HCPCS: 71046; 71275; 78452; 80053; 80307; 82550; 83690; 83735; 83880; 84443; 84484; 84703; 85025; 85379; 85610; 85730; 93005; 93017; 96374; 96375; 99285; A9502; G0378; J2270; J2405; J2785; Q9967